=== PATIENT | male | born 1990 | race Caucasian/White ===

== ENCOUNTER 2023-10-18 16:59 | Emergency (ER) | payer BC, SELFPAY ==
[2023-10-18 17:10] VITALS: BP 92/65
--- NOTE | 2023-10-18 17:17 | ED.PDOC.TRB ---
ED Provider Triage
-
Patient seen by provider in Triage?: Seen in Triage
53-year-old otherwise healthy male presents with sudden onset myalgias fatigue chills sweats and fever. No known sick contacts. Came here by EMS. EMS started IV fluids. COVID and flu test pending. No respiratory distress. No other complaints.
Tylenol administered for fever
[2023-10-18] MEDS: TYLENOL 1000 MG PO (17:18)
[2023-10-18 17:39] LABS: COVID-19 Antigen Negative (Negative)
[2023-10-18 18:00] VITALS: BP 105/74
--- NOTE | 2023-10-18 18:16 | ED.GENMED ---
History of Present Illness
General
Chief Complaint: Cold/Flu/URI Symptoms
Source: patient
Exam Limitations: none
Time Seen by Provider: 10/18/23 18:00
History of Present Illness
History of Present Illness:
This is a 33 year old male that comes in with c/o body aches and low back pain. States that last night he started feeling like he got hit by a bus. States that he was achy and sinus were bothering him. Sates that one minute he would be freezing and
the sweating. States that he has low back pain and he was concerned as his Dad had kidney stones and he didn't know what this felt like. States that his pain is on both sided. States that he had fever with chills, vomiting once today, headache,
dizziness. Denies any chest pain, SOB, abd pain, nausea, diarrhea, urinary burning
Past History
Past History
ED Past Medical History: Psychiatric (Anxiety)
ED Past Surgical History: None
Social History
Tobacco: Former smoker
Alcohol: None
Personal:
Living: with family
Employment: Employed
Review of Systems
Review of Systems
All Other Systems: ROS reviewed and negative except as documented in HPI and ROS
Constitutional: Reports fever, night sweats and chills
EENT: Reports no symptoms
Respiratory: Reports no symptoms; Denies cough or trouble breathing
Cardiac: Reports no symptoms; Denies chest pain
ABD/GI: Reports vomiting (Once); Denies abdominal pain, nausea or diarrhea
: Reports no symptoms; Denies dysuria, frequency or urgency
Musculoskeletal: Reports back pain (Low back ache)
Skin: Reports no symptoms
Neurological: Reports dizzy and headache
Psychiatric: Reports no symptoms
Phy Exam
General Physical Exam
General Presentation: well appearing and no apparent distress
General age: appears stated age
General Skin: warm and dry
General Habitus: normal
General Mental: alert
General Hydration: appears well hydrated
ENT Exam
ENT Exam: TM's normal, pharynx normal and neck supple
Eye Exam
Eye Exam: EOMI
Cardiovascular Exam
Cardiovascular Exam: regular rate/rhythm, no edema, no murmur and normal peripheral pulses
Pulmonary Exam
Pulmonary Exam: lungs clear, no respiratory distress, no rales, chest non tender, no crackles, no rhonchi, no wheezing and no cough
Gastrointestinal Exam
Gastrointestinal Exam: normal bowel sounds, non tender, soft, no organomegaly, no pulsatile mass and non distended
Musculoskeletal Exam
Musculoskeletal Exam: full ROM and no edema
Skin Exam
Skin Exam: normal color, warm/dry, no rash and no petechia
Psychiatric Exam
Psychiatric Exam: normal mood/affect
Course
Orders/Labs/Results
Orders:
Orders
10/18/23 17:16
COVID-19 Antigen Urgent
Source: Nasal Swab
Influenza A+B Rapid Molecular Urgent
SUNDAY Source: Nasal Swab
Specimen Description:
10/18/23 17:17
Acetaminophen [Tylenol] 1,000 mg .ROUTE .STK-MED ONE
Acetaminophen [Tylenol] 1,000 mg PO NOW STA
10/18/23 18:11
Ketorolac [Toradol] 30 mg .ROUTE .STK-MED ONE
10/18/23 18:16
Ketorolac [Toradol] 30 mg IV NOW STA
10/18/23 18:21
Urinalysis Reflex To Culture Urgent
Date Specimen was Collected: 10/18/23
Time Specimen was Collected: 18:20
Urine Microscopic Reflex Cult Urgent
Abnormal Lab Results
10/18/23
18:21
Urine Ketones 3+ A
(Negative)
Leukocyte Esterase Rfl Trace A
(Negative)
COVID and Influenza negative. Urine negative for infection.
Vital Signs
Initial and Last Documented VS:
Initial Vital Signs
Temp Pulse Resp BP Pulse Ox
100.4 F H 96 16 92/65 96
10/18/23 17:10 10/18/23 17:10 10/18/23 17:10 10/18/23 17:10 10/18/23 17:10
Last Documented Vital Signs
Temp Pulse Resp BP Pulse Ox
99.6 F 74 16 105/74 99
10/18/23 18:00 10/18/23 18:00 10/18/23 18:00 10/18/23 18:00 10/18/23 18:14
MDM/Problems Addressed
Differential Diagnosis Includes:
Viral syndrome
MDM/Problems Addressed:
This is a 33 year old male that comes in with c/o body aches that started last night. States that he has had a fever, vomited once and has a headache with some dizziness.
Will check COVID, Influenza and urine. Will medicate for pain.
back to see patient. Explained that his urine is negative for any blood and there is no infection. Encouraged patient to increase his water intake to 8-8oz glasses daily. tylenol or Ibuprofen for fever and pain. Return with any concerns .
Chronic conditions affecting care:
NA
Acute Exacerbation and/or Progression of Chronic Illness:
NA
*Pulse Oximetry
Patient hypoxic: no
*EKG
Interpreted by ED Provider?: NA
Rate: EKG- N/A
*Disaster Recovery Specialist Interpretation
Rate: Disaster Recovery Specialist- N/A
*Critical Care Note
Total Time (30-74mins, 75-104mins- exclusive of procedures): Not Applicable
ED Attending Note
-
Portions of this chart may have been created with voice recognition software.� Occasional wrong word or��sound alike� substitutions may have occurred due to the inherent limitations of voice recognition software.
Discharge Plan
Departure
Patient Disposition: Home (Routine Discharge)
Date of Disposition: 10/18/23
Time of Disposition: 19:27
Patient with high blood pressure during this ER visit?: No
Condition: Good
Covid-19: Negative COVID-19
Discharge Problem:
Fever, Acute viral syndrome
Instructions: Fever, Adult (DC), Viral Syndrome (DC)
Prescriptions:
No Action
No Meds
Referrals:
Romulo Shafer MD [Family Provider] - Call in 1-3 days for appt
Activity Restrictions/Additional Instructions:
As discussed, you are negative for COVID and Influenza. Your urine is negative for infection or blood. This is most likely a viral illness. Please increase your water intake to 8-8oz glasses daily. Tylenol or Ibuprofen for pain and fever. Follow up
with the family doctor for recheck. IF YOU HAVE ANY OTHER CONCERNS PLEASE RETURN TO THE EMERGENCY ROOM.
Interventions
Interventions:
*Risk Screen - Suicide Last Done: 10/18/23 18:14
*General Assessment Last Done: 10/18/23 18:14
*Neglect/Abuse Screening Last Done: 10/18/23 18:14
ED- Fall Risk Assessment Last Done: 10/18/23 18:14
ED- Pulmonary Assessment Last Done: 10/18/23 18:14
Discharge Date and Time
Print Language: [id number]
[2023-10-18] MEDS: TORADOL 30 MG IV (18:17)
[2023-10-18 18:37] LABS: Urine Albumin Trace (Neg - Trace); Urine Bilirubin Negative (Negative); Urine Character Clear (Clear); Urine Color Yellow; Urine Glucose Negative (Negative); Urine Ketone 3+ (Negative); Urine Leukocyte Trace (Negative); Urine Nitrite Negative (Negative); Urine Occult Blood Negative (Negative); Urine Urobilinogen Negative (Neg - 1+)
[2023-10-18 19:05] LABS: Urine Amorphous Seen; Urine Red Blood Cell 0-2 /HPF (0-2); Urine White Cell 0-2 /HPF (0-5)
== END 2023-10-18 19:38 | disposition home or self-care (01) ==
LOC: EMR 16:59
PROVIDERS: Clinical Nurse Specialist Family Health; Physician Assistant; EMERGENCY PHYSICIAN Emergency Medicine; FAMILY PHYSICIAN Family Medicine
DX: B34.9 Viral infection, unspecified (principal); R50.9 Fever, unspecified; Z11.52 Encounter for screening for COVID-19; R11.10 Vomiting, unspecified; R51.9 Headache, unspecified; R42 Dizziness and giddiness; Z87.891 Personal history of nicotine dependence; M54.50 Low back pain, unspecified; F41.9 Anxiety disorder, unspecified
CPT/HCPCS: 99284; 96374; 81003; 81015; 87502; 87811